=== PATIENT | male | born 1965 | race American Indian/Alaskan Native ===

== ENCOUNTER 2017-05-11 10:40 | Outpatient (CLI) | payer OTHER ==
--- NOTE | 2017-05-11 12:09 | XRay Report ---
Left hip 2 views: History: Sciatica, widespread muscle spasm. Numbness left leg. Findings: Marked narrowing of the hip joint. Sclerotic adjacent articular surfaces with peripheral osteophytes and subarticular cyst formation. No soft tissue calcification. No fracture. Impression: Severe arthritic changes left hip.
--- NOTE | 2017-05-11 12:11 | XRay Report ---
Bilateral knee 2 views: History: Widespread muscle spasm and numbness. Findings: Minimal narrowing of the medial and patellofemoral compartment right and left knee joint, more pronounced at the right knee joint. Sclerotic adjacent articular surfaces with degenerative changes. No fracture. No soft tissue calcification. Impression: Degenerative changes right and left knee.
== END 2017-05-11 10:41 | disposition home or self-care (01) ==
LOC: XRAY 10:40
PROVIDERS: ATTEND Internal Medicine
DX: M17.0 Bilateral primary osteoarthritis of knee (principal); M16.12 Unilateral primary osteoarthritis, left hip; M25.752 Osteophyte, left hip; M25.751 Osteophyte, right hip; I10 Essential (primary) hypertension